=== PATIENT | male | born 1975 | race American Indian/Alaskan Native ===

== ENCOUNTER → 2021-02-21 12:08 | Outpatient (CLI) | payer BC, SELFPAY ==
[2021-02-21 12:55] LABS: COVID19 -Nasal RAPID Negative (Negative)
== END ==
PROVIDERS: Referring Provider Nurse Practitioner Family; Visit Provider Nurse Practitioner Family
DX: Z20.822 Contact with and (suspected) exposure to COVID-19 (principal); J02.9 Acute pharyngitis, unspecified
CPT/HCPCS: 87070; 87635

== ENCOUNTER 2021-03-02 22:54 | Emergency (ER) | payer BC, SELFPAY ==
[2021-03-02] VITALS (9 sets, daily range): BP systolic 132–152; BP diastolic 62–83; PULSE 97–104; RESP 18–33; TEMP 36.4; O2SAT 93–97; BMI 42.3
--- NOTE | 2021-03-02 23:00 | DI.RAD.S_ITS ---
PROCEDURE: XR CHEST 1V INDICATIONS: chest pain TECHNIQUE: One view of the chest was acquired. COMPARISON: None. FINDINGS: Surgical changes and devices: None. Lungs and pleura: Minimal left basilar atelectasis and infiltrate accentuated by low lung volumes. Mediastinum: Mediastinal contours appear normal. Heart size is normal. Mild vascular congestion noted. Bones and chest wall: No suspicious bony lesions. Overlying soft tissues appear unremarkable. IMPRESSION: Mild vascular congestion and left basilar atelectasis and or infiltrate, accentuated by low lung volumes. Dictated by: Catalino aDvid M.D. on 03/02/2021 at 23:28 Approved by: Catalino David M.D. on 03/02/2021 at 23:29
--- NOTE | 2021-03-02 23:14 | ED.CHESTPAIN ---
HPI - Chest Pain General Chief Complaint: Chest Pain Stated Complaint: chest pain Time Seen by Provider: 03/02/21 23:07 Source: patient Mode of arrival: Ambulatory Limitations: no limitations History of Present Illness HPI narrative: Patient is a 45-year-old male with no known history BMI 42 presenting with 4 days of chest discomfort. It has progressively getting worse he describes as tightness on the left side of his chest, he is noticing increasing shortness of breath with exertion which is completely abnormal for him. She does have a history of smoking. No known family history of coronary artery disease. He thought his discomfort was indigestion he has been taking Tums it is not going away. Initial EKG concerning for STEMI with ST elevation lateral and inferior he has Q-waves in inferior leads. Related Data Previous Rx's Medication Instructions Recorded amoxicillin 500 mg capsule 500 mg PO BID #20 cap 02/21/21 Allergies Allergy/AdvReac Type Severity Reaction Status Date / Time No Known Drug Allergies Allergy Verified 03/02/21 23:01 Review of Systems Review of Systems Narrative: GENERAL: Denies chills, fatigue, malaise, fever, sweats, travel HEENT: Denies sinus pain, ear pain, sore throat, difficulty swallowing, neck pain RESPIRATORY: Denies dyspnea, cough, wheezing, hemoptysis, sputum. CARDIOVASCULAR: See HPI GASTROINTESTINAL: Denies nausea, vomiting, abdominal pain, diarrhea, constipation, melena. : Denies dysuria, frequency, incontinence, hematuria, urinary retention, flank pain. MUSCULOSKELETAL: Denies weakness, joint pain, or bony pain SKIN: No rash, no erythema, no pruritus NEUROLOGIC: Denies weakness, dizziness, headache, numbness, change in speech, confusion PSYCHIATRIC: No concerning psychosocial issues. 12 point review of systems is negative except for those stated above and HPI Patient History Social History Smoking Status: Current every day smoker Smoking Status: Current every day smoker alcohol intake frequency: 0-2 drinks per day Substance Use Type: does not use Exam Initial Vital Signs Initial Vital Signs: Vital Signs Pulse Rate 101 H 03/02/21 22:59 Respiratory Rate 32 H 03/02/21 22:59 Blood Pressure 151/83 H 03/02/21 22:59 Pulse Oximetry 94 03/02/21 22:59 GENERAL: Alert 45-year-old male BMI 42 appears uncomfortable HEENT: Head atraumatic,EOMI, pupils reactive, face symmetric, [moist] mucous membranes CARDIOVASCULAR: Regular rate and rhythm without murmurs, rubs or gallops. RESPIRATORY: Breath sounds equal bilaterally, no wheezes rales or rhonchi. ABDOMEN: Soft, nontender. Normoactive bowel sounds all 4 quadrants. No guarding or rebound. EXTREMITIES: Normal range of motion, no clubbing or edema. Neurovascularly intact NEUROLOGICAL: Alert and oriented x4.Normal gait and speech. SKIN: Warm, dry, no laceration, no petechiae, no rashes or lesions. Course Orders Ordered: ED Orders 03/02/21 23:00 XR chest 1V Stat EKG-12 Lead Stat 03/02/21 23:02 BNP [NT-proBNP (BNP-Adult 18+)] Stat Complete Blood Count AUTO DIFF Stat Comprehensive Metabolic Panel Stat D Dimer Stat Lipase Stat PT [Prothrombin Time INR] Stat PTT [Partial Thromboplastin Time] Stat Troponin & CK Cardiac Panel Stat 03/02/21 23:30 COVID19 -Nasal swab/Pre-Proc Stat Discontinued Medications Aspirin (Aspirin 81 Mg Chew Tab) 324 mg PO NOW ONE Stop: 03/02/21 23:08 Last Admin: 03/02/21 23:17 Dose: 324 mg Documented by: EPIFANIO Heparin Sodium (Porcine) (Heparin 5,000 Unit/Ml Vial) 5,000 unit IV NOW ONE Stop: 03/02/21 23:08 Last Admin: 03/02/21 23:17 Dose: 5,000 unit Documented by: EPIFANIO Heparin Sodium/Dextrose (Heparin Drip) 25,000 unit in 500 mls @ 20 mls/hr IV CONT JEANNINE; Protocol Last Titration: 03/03/21 00:00 Dose: 0 units/hr, 0 mls/hr Documented by: Admin: 03/02/21 23:18 Dose: 1,000 units/hr, 20 mls/hr Documented by: EPIFANIO Nitroglycerin (Nitroglycerin) 50 mg in 250 mls @ 1.5 mls/hr IV TITRATE JEANNINE; Protocol Last Titration: 03/03/21 00:00 Dose: 0 mcg/min, 0 mls/hr Documented by: Admin: 03/02/21 23:52 Dose: 5 mcg/min, 1.5 mls/hr Documented by: JUJU Nitroglycerin (Nitroglycerin 0.4 Mg Sl Tab) 0.4 mg SL [id number] PRN PRN Reason: Chest Pain Last Admin: 03/02/21 23:28 Dose: 0.4 mg Documented by: Admin: 03/02/21 23:23 Dose: 0.4 mg Documented by: Admin: 03/02/21 23:17 Dose: 0.4 mg Documented by: EPIFANIO Vital Signs Vital signs: Vital Signs - 8 hr 03/02/21 22:59 03/02/21 23:00 03/02/21 23:01 Temperature 97.5 F L Pulse Rate 101 H 97 H 97 H Respiratory Rate 32 H 28 H 18 Blood Pressure 151/83 H 138/74 138/74 Pulse Oximetry 94 94 94 03/02/21 23:20 03/02/21 23:25 03/02/21 23:30 Temperature Pulse Rate 104 H 104 H 102 H Respiratory Rate 33 H 26 H 28 H Blood Pressure 138/64 132/62 142/68 H Pulse Oximetry 93 94 94 03/02/21 23:35 03/02/21 23:40 03/02/21 23:45 Temperature Pulse Rate 101 H 99 H 102 H Respiratory Rate 20 26 H 22 Blood Pressure 146/64 H 144/66 H 152/79 H Pulse Oximetry 96 95 97 MDM - Chest Pain Lab Data Result diagrams: 03/02/21 23:02 03/02/21 23:02 Labs: Lab Results 03/02/21 03/02/21 03/02/21 Range/Units 23:02 23:02 23:02 WBC 19.3 H (4.5-11.0) X10^3/uL RBC 5.15 (4.5-5.9) X10^6/uL Hgb 15.0 (13.5-17.5) g/dL Hct 44.0 (41-53) % MCV 85.5 (80-100) fL MCH 29.1 (26-34) PG MCHC 34.0 (30-36) % RDW 13.4 (11.6-14.8) % Plt Count 383 (150-400) X10^3/uL Neut % (Auto) 80.1 H (50-75) % Lymph % (Auto) 13.3 L (25-40) % [place] % (Auto) 3.4 (3-14) % Eos % (Auto) 2.2 (2-4) % Baso % (Auto) 1.0 (0-2) % Neut # (Auto) 95442 H (1296-3580) /uL Lymph # (Auto) 2600 (0081-0693) /uL [place] # (Auto) 700 (0-900) /uL Eos # (Auto) 400 (0-450) /uL Baso # (Auto) 200 H (0-100) /uL PT 13.2 H (10.1-12.7) SECONDS INR 1.2 (0.9-1.3) APTT 40 H (26.4-36.2) SECONDS D-Dimer (<230) ng/mL Sodium 138 (137-145) mmol/L Potassium 4.2 (3.4-5.1) mmol/L Chloride 101 (98-107) mmol/L Carbon Dioxide 26 (22-32) mmol/L BUN 11 (9-20) mg/dL Creatinine 0.93 (0.66-1.25) mg/dL Estimated GFR > 60.0 (>60) mL/min BUN/Creatinine Ratio 11.8 (6-22) Glucose 151 H (70-100) mg/dL Calcium 9.6 (8.4-10.2) mg/dL Total Bilirubin 0.5 (0.2-1.3) mg/dL AST 35 (17-59) IU/L ALT 24 (<50) IU/L Alkaline Phosphatase 128 H (38-126) U/L Total Creatine Kinase 158 (55-170) U/L CK-MB (CK-2) 9.58 H (<2.37) ng/mL CK-MB (CK-2) Rel Index 6.1 H* (1.5-5.0) % Troponin I 5.510 H* (0.01-0.034) ng/mL NT-Pro-B Natriuret Pep (<125) pg/mL Total Protein 8.2 (6.3-8.2) g/dL Albumin 4.2 (3.5-5.0) g/dL Globulin 4.0 (1.7-4.1) g/dL Albumin/Globulin Ratio 1.1 (1.0-2.8) Lipase 30 (23-300) U/L SARS-CoV-2 (PCR) (Negative) 03/02/21 03/02/21 03/02/21 Range/Units 23:02 23:02 23:30 WBC (4.5-11.0) X10^3/uL RBC (4.5-5.9) X10^6/uL Hgb (13.5-17.5) g/dL Hct (41-53) % MCV (80-100) fL MCH (26-34) PG MCHC (30-36) % RDW (11.6-14.8) % Plt Count (150-400) X10^3/uL Neut % (Auto) (50-75) % Lymph % (Auto) (25-40) % [place] % (Auto) (3-14) % Eos % (Auto) (2-4) % Baso % (Auto) (0-2) % Neut # (Auto) (7542-3340) /uL Lymph # (Auto) (1656-4302) /uL [place] # (Auto) (0-900) /uL Eos # (Auto) (0-450) /uL Baso # (Auto) (0-100) /uL PT (10.1-12.7) SECONDS INR (0.9-1.3) APTT (26.4-36.2) SECONDS D-Dimer 400 H (<230) ng/mL Sodium (137-145) mmol/L Potassium (3.4-5.1) mmol/L Chloride (98-107) mmol/L Carbon Dioxide (22-32) mmol/L BUN (9-20) mg/dL Creatinine (0.66-1.25) mg/dL Estimated GFR (>60) mL/min BUN/Creatinine Ratio (6-22) Glucose (70-100) mg/dL Calcium (8.4-10.2) mg/dL Total Bilirubin (0.2-1.3) mg/dL AST (17-59) IU/L ALT (<50) IU/L Alkaline Phosphatase (38-126) U/L Total Creatine Kinase (55-170) U/L CK-MB (CK-2) (<2.37) ng/mL CK-MB (CK-2) Rel Index (1.5-5.0) % Troponin I (0.01-0.034) ng/mL NT-Pro-B Natriuret Pep 536 H (<125) pg/mL Total Protein (6.3-8.2) g/dL Albumin (3.5-5.0) g/dL Globulin (1.7-4.1) g/dL Albumin/Globulin Ratio (1.0-2.8) Lipase (23-300) U/L SARS-CoV-2 (PCR) Negative (Negative) Imaging Data Chest x-ray: Radiologist's Impression: PROCEDURE:? XR CHEST 1V ? INDICATIONS:? chest pain ? TECHNIQUE:? One view of the chest was acquired.? ? COMPARISON:? None. ? FINDINGS:? ? Surgical changes and devices:? None.? ? Lungs and pleura:? Minimal left basilar atelectasis and infiltrate accentuated by low lung volumes. ? Mediastinum:? Mediastinal contours appear normal.? Heart size is normal.? Mild vascular congestion noted. ? Bones and chest wall:? No suspicious bony lesions.? Overlying soft tissues appear unremarkable.? ? IMPRESSION:? ? Mild vascular congestion and left basilar atelectasis and or infiltrate, accentuated by low lung volumes. ? ? Dictated by: Catalino David M.D. on 03/02/2021 at 23:28 ? ECG Data Interpretation: EKG 1. Sinus rhythm rate 100 ST elevation in lead 1 aVL Q-waves noted in inferior leads [address] elevation [address] depression EKG 2. Sinus rhythm rate 97 no acute changes MDM Narrative Medical decision making narrative: Patient's symptoms an EKG here certainly concerning for STEMI. We have called [facility] our closest STEMI Center however they have somebody in their cath lab tech and are unwilling to talk to. [facility] has been called. 23:20 Dr. Grayson, cardiology/interventionalist has been updated patient's symptoms test results and he he has evaluated EKGs. At this time he is happy to have patient transfer to the emergency department, Dr. Rodriguez, ED doctor at [facility] accepts patient Patient is given 3 nitroglycerin which has completely resolved his pain. He actually states that he is having pain with inspiration. 23:45 Trop and Dimer are still pending Troponin comes back elevated at 5.51. Cardiology and ED attending at receiving [facility] have been notified Critical Care Time Critical Care Time Critical Care Time: Yes Total Critical Care Time: 30 Attestation: The high probability of a clinically significant, sudden or life threatening deterioration of the [cardiovascular] system(s) required my full and direct attention, intervention and personal management. The aggregate critical care time was 30 minutes. This time is in addition to time spent performing reported procedures but includes the following: [x] Data Review and interpretation [x] Patient assessment and monitoring of vital signs [x] Documentation [x] Medication orders and management Discharge Plan Departure Patient Disposition: [facility] Clinical Impression: ST elevation myocardial infarction (STEMI) Prescriptions: No Action amoxicillin 500 mg capsule 500 mg PO BID Qty: 20 0RF Rx Instructions: take for the entire 10 days even if symptoms seem better Referrals: Miscellaneous,Doctor, MD [Primary Care Provider] -
[2021-03-02] MEDS: NITROGLYCERIN 0.4 MG SL TAB SL ×3 (23:17→23:28)
[2021-03-02] MEDS: ASPIRIN 81 MG CHEW TAB 324 MG PO (23:17)
[2021-03-02] MEDS: HEPARIN 5,000 UNIT/ML VIAL 5000 UNIT IV (23:17)
[2021-03-02] MEDS: HEPARIN DRIP 25,000 UNIT/500 ML IV.SOLN 20 UNIT IV (23:18)
[2021-03-02 23:23] LABS: Add Manual Diff / Slide Review NO; Basophils Absolute Auto 200 /uL (0-100); Eosinophils Absolute Auto 400 /uL (0-450); Eosinophils Percent Auto 2.2 % (2-4); INR 1.2 (0.9-1.3); Lymphocytes Absolute Auto 2600 /uL (1100-4500); Lymphocytes Percent Auto 13.3 % (25-40); Mean Corpuscular Hemoglobin 29.1 PG (26-34); Mean Corpuscular Volume 85.5 fL (80-100); Monocytes Absolute Auto 700 /uL (0-900); Monocytes Percent Auto 3.4 % (3-14); Neutrophils Absolute Auto 15500 /uL (1500-7000); Neutrophils Percent Auto 80.1 % (50-75); Platelet Count 383 X10^3/uL (150-400); Prothrombin Time 13.2 SECONDS (10.1-12.7); Red Blood Cell Count 5.15 X10^6/uL (4.5-5.9); Red Cell Distribution Width 13.4 % (11.6-14.8); White Blood Cell Count 19.3 X10^3/uL (4.5-11.0)
[2021-03-02 23:25] LABS: PTT Partial Thromboplastin Tim 40 SECONDS (26.4-36.2)
[2021-03-02 23:35] LABS: Alanine Aminotransferase 24 IU/L (<50); Albumin 4.2 g/dL (3.5-5.0); Albumin Globulin Ratio 1.1 (1.0-2.8); Alkaline Phosphatase 128 U/L (38-126); Aspartate Aminotransferase 35 IU/L (17-59); BUN Creatinine Ratio 11.8 (6-22); Bilirubin Total 0.5 mg/dL (0.2-1.3); Blood Urea Nitrogen 11 mg/dL (9-20); Calcium 9.6 mg/dL (8.4-10.2); Carbon Dioxide 26 mmol/L (22-32); Chloride 101 mmol/L (98-107); Creatine Kinase 158 U/L (55-170); Estimated Glomerular Filt Rate > 60.0 mL/min (>60); Glucose 151 mg/dL (70-100); HEMOLYSIS < 15 (0-50); Lipase 30 U/L (23-300); Potassium 4.2 mmol/L (3.4-5.1); Sodium 138 mmol/L (137-145); Total Protein 8.2 g/dL (6.3-8.2)
[2021-03-02] MEDS: NITROGLYCERIN 50 MG/250 ML INFUS..BTL IV (23:52)
[2021-03-02 23:55] LABS: COVID19 -Nasal RAPID Negative (Negative)
[2021-03-02 23:57] LABS: D Dimer 400 ng/mL (<230)
[2021-03-03 00:10] LABS: NT-proBNP (BNP-Adult 18+) 536 pg/mL (<125)
[2021-03-03 00:13] LABS: Creatine Kinase MB 9.58 ng/mL (<2.37)
[2021-03-03 00:17] LABS: CKMB % Relative Index 6.1 % (1.5-5.0)
== END 2021-03-03 00:07 | disposition short-term general hospital (02) ==
PROVIDERS: Emergency Provider Emergency Medicine
DX: I21.3 ST elevation (STEMI) myocardial infarction of unspecified site (principal); Z20.822 Contact with and (suspected) exposure to COVID-19
CPT/HCPCS: 36415; 71045; 80053; 82550; 82553; 83690; 83880; 84484; 85025; 85379; 85610; 85730; 87635; 93005; 96365; 96375; 96376; 99284; 99291; C9803; J1644

== ENCOUNTER → 2022-02-13 09:13 | Outpatient (CLI) | payer BC, SELFPAY ==
[2022-02-13 10:31] LABS: COVID19 -Nasal RAPID Negative (Negative)
== END ==
PROVIDERS: PCP Internal Medicine; Visit Provider Surgery
DX: Z20.822 Contact with and (suspected) exposure to COVID-19 (principal); Z01.812 Encounter for preprocedural laboratory examination
CPT/HCPCS: 87635; C9803

== ENCOUNTER 2022-02-14 08:52 | Day surgery (SDC) | payer BC, SELFPAY ==
[2022-02-12 13:21] VITALS: BMI 39.4
[2022-02-14] VITALS (10 sets, daily range): BP systolic 119–167; BP diastolic 73–104; PULSE 65–80; RESP 12–20; TEMP 36.4–37.2; O2SAT 95–98; BMI 39.4
[2022-02-14] MEDS: LACTATED RINGERS 1,000 ML 120 ML IV (09:22)
--- NOTE | 2022-02-14 09:36 | PM.HP.1 ---
History of Present Illness History of Present Illness Date Patient Seen: 02/14/22 Time Patient Seen: 09:36 Chief complaint: Open Supra Umbilical Hernia Repair w/Mesh Narrative: 46M with a symptomatic supra umbilical hernia here for open elective repair. No interval changes in health. Patient History Medical History HTN (hypertension) Myopericarditis (~02/2021) Obesity (BMI 30-39.9) Trimalleolar fracture Surgical History Hx of cardiac cath (~03/03/21) Family & Social History Social History: household members significant other lives independently Yes Tobacco & Substance use: Smoking Status Current every day smoker alcohol intake current alcohol intake frequency 0-2 drinks per day Substance Use Type does not use Meds Home Medications and Allergies Home Medications Medication Instructions Recorded Confirmed Type acyclovir PO 11/16/21 11/16/21 History calcium carbonate [Tums] PO PRN Hypocalcemia 11/16/21 11/16/21 History ibuprofen 400 mg tablet (IBU) 400 mg PO Q8H PRN Pain (Scale 11/16/21 02/14/22 History Score 4-6) omega-3 fatty acids [Fish Oil] PO 11/16/21 11/16/21 History Allergies Allergy/AdvReac Type Severity Reaction Status Date / Time No Known Drug Allergies Allergy Verified 02/14/22 09:18 Exam Vital Signs (past 8 hours): - 02/14/22 09:08 Temperature 97.6 F Pulse Rate 65 Respiratory Rate 20 Blood Pressure 119/73 Pulse Oximetry 96 Oxygen Delivery Method Room Air Oxygen Delivery Method Room Air Narrative Exam Narrative: Gen-Adult man alert and oriented Abdomen -Soft supra umbilical hernia marked with my initials. Assessment & Plan Assessment and plan (1) Ventral hernia: Qualifiers: Obstruction and gangrene presence: without obstruction or gangrene Qualified Code(s): K43.9 - Ventral hernia without obstruction or gangrene Status: Acute Assessment & Plan narrative: 46M with supra umbilical ventral hernia here for elective open repair. Operative risks again discussed including bleeding, infection ,reoccurence, damage to surrounding structures. Questions have been answered and he is in agreement with this plan. Time Spent With Patient Critical Care time: I spent a total of [] minutes of critical care time on this patient's care today; this time is exclusive of procedural time.
[2022-02-14] MEDS: CEFAZOLIN 2 GM/100 ML PREMIX 100 ML IV (10:10)
[2022-02-14] MEDS: BUPIVACAINE 0.25% (PF) VIAL 30 ML INJ (10:27)
--- NOTE | 2022-02-14 10:39 | SUR.OPER ---
PATIENT C/O LEFT HIP PAIN.. STARTED 2 DAYS AGO, UNKNOWN CAUSE. PILLOW UNDER KNEES
--- NOTE | 2022-02-14 11:48 | PM.OP.1 ---
Operative Date/Time/Diagnoses Date of procedure: 02/14/22 Time of procedure: 11:48 Pre-op diagnosis: Umbilical hernia Post-op diagnosis: same Procedure & Clinicians Procedure: open umbilical hernia repair with mesh Same procedure as scheduled: Yes Indications: symptomatic non reducible umbilical hernia Surgeon: Brien Davies Click Yes if Unassisted: Yes Anesthesia Type: General Operative Notes Findings: incarcerated viable omentum Specimen(s): none sent Estimated Blood Loss (mL): 50 Procedure in detail: Patient was brought to the operating room placed supine on the table.? Bilateral lower extremity compression devices were applied.? General anesthesia was induced and they were intubated with an endotracheal tube.? They received 2 g of Ancef prior to skin incision.? They were prepped and draped in sterile fashion.? A time-out was performed.? A curvilinear incision was made inferior to the umbilicus.? The subcutaneous tissues were divided.? The umbilical hernia was identified and the hernia sac was dissected off the umbilical skin and circumferentially off of the fascia defect.? The hernia sac was sharply opened and contained incarcerated but viable omentum.? The omentum could not adequately be reduced back into the abdomen and therefore it was ligated and resected..? Using blunt dissection I carefully carefully freed the hernia sac from beneath the fascia defect in order to accomodate the mesh.? The? fascia defect was 4 cm in maximal diameter.? A Bard Ventralex ST hernia patch 8 x 12 cm was inserted beneath the fascia defect in a sublay position. The mesh was anchored in multiple locations using Ethibond suture to the fascia and the fascial defect was closed over the mesh.? The umbilical skin was tacked to the subcutaneous tissues and then the remainder of the subcutaneous tissues were reapproximated using 3 0 Vicry,l skin closed with 4 0 Monocryl followed by the application of Dermabond and Steri-Strips.? Sponge instrument count at the end of the operation was correct.? Patient tolerated procedure well was extubated and transferred to postoperative care unit in stable condition. Complications: none Post-operative Condition: stable Disposition: same day surgery
[2022-02-14] MEDS: HYDROMORPHONE 2 MG INJ IV ×2 (11:59→12:08)
[2022-02-14] MEDS: OXYCODONE/ACETAMINOPHEN 5/325 TABLET 1 TAB PO ×2 (12:16→13:07)
== END 2022-02-14 13:37 | disposition home or self-care (01) ==
PROVIDERS: PCP Internal Medicine; Referring Provider Surgery; Visit Provider Surgery
PROC: (CPT 49587; principal; 2022-02-14 10:15)
DX: K42.9 Umbilical hernia without obstruction or gangrene (principal); I10 Essential (primary) hypertension
CPT/HCPCS: 49587; J0330; J0690; J1100; J1170; J2250; J2405; J2704; J3010

== ENCOUNTER 2023-04-26 11:36 | Day surgery (SDC) | payer BC, SELFPAY ==
--- NOTE | 2023-04-26 | PATH_ITS ---
[facility] Accession Number: [id number] No. of containers..01 Tissue . 01 Material submitted: . colon - DESCENDING POLYP . 01 Diagnosis: Descending Colon Polyp, Biopsy: Tubular adenoma. MRV 04/29/2023 1334 Local . 01 Electronically signed: . Alexandra Whitney MD, Pathologist NPI- [id number] . 01 Gross description: . DESCENDING POLYP: Received in formalin is 2 fragment(s) of mirza, soft tissue measuring 0.2 x 0.2 x 0.1 cm to 0.2 x 0.1 x 0.1 cm submitted entirely in 1 cassette(s) /AAY 04/27/2023 0630 Local . 01 Pathologist provided ICD-10: D12.4 . 01 CPT . 210091 Specimen Comment: A courtesy copy of this report has been sent to [phone] Performed at: 01 [facility] [address] [place] [address], [place], [place] [id number] MD Bart Cristobal MD Phone: [phone]
[2023-04-26 12:35] VITALS: BP 126/82; PULSE 62; RESP 20; TEMP 36.2; O2SAT 96
[2023-04-26] MEDS: LACTATED RINGERS 1,000 ML 42 ML IV (12:39)
--- NOTE | 2023-04-26 13:10 | PM.HP.1 ---
History of Present Illness History of Present Illness Date Patient Seen: 04/26/23 Chief complaint: Colonoscopy Narrative: The patient presents for colorectal screening. They have never had any previous examination for such. No personal or family history of colon cancer. On further history denies any recent gastrointestinal symptoms. No nausea, vomiting, abdominal pain, loss of appetite, unexplained weight loss, change in bowel habits, or blood per rectum. PFSH Medical History Myopericarditis (~02/2021) Obesity (BMI 30-39.9) HTN (hypertension) Trimalleolar fracture Surgical History Hx of cardiac cath (~03/03/21) Social History household members: significant other lives independently: Yes Smoking Status: Current some day smoker alcohol intake: current Meds Home Medications and Allergies Home Medications Medication Instructions Recorded Confirmed Type acyclovir PO 11/16/21 03/08/22 History calcium carbonate [Tums] PO PRN Hypocalcemia 11/16/21 03/08/22 History acetaminophen 325 mg capsule 650 mg (2 x 325 mg) PO QID PRN 02/14/22 04/26/23 Rx (Tylenol) pain #60 caps celecoxib 200 mg capsule (Celebrex) 200 mg PO BID #30 caps 02/15/22 04/26/23 Rx Allergies Allergy/AdvReac Type Severity Reaction Status Date / Time No Known Drug Allergies Allergy Verified 04/26/23 12:02 Exam Vital Signs (past 8 hours): - 04/26/23 12:35 Temperature 97.2 F L Pulse Rate 62 Respiratory Rate 20 Blood Pressure 126/82 Pulse Oximetry 96 Oxygen Delivery Method Room Air Oxygen Delivery Method Room Air Narrative Exam Narrative: General adult man alert oriented no acute distress Chest nonlabored respiration Extremities warm well perfused Assessment & Plan Assessment & Plan narrative: Insert endoscopy assessment plan
[2023-04-26 13:46] VITALS: BP 124/80; PULSE 54; RESP 18; TEMP 36.2; O2SAT 93
--- NOTE | 2023-04-26 13:48 | P.OP.COLON_ITS ---
Operative Date/Time/Diagnoses Date of procedure: 04/26/23 Time of procedure: 13:48 Pre-op diagnosis: Colorectal screening Procedure & Clinicians Study performed: Colonoscopy and polypectomy Same procedure as scheduled: Yes Indications: Colorectal screening Surgeon: Brien Davies Procedure Notes Procedure in detail: The history and physical was performed/updated and the patient is ASA class is 3. The procedure was discussed in detail with the patient. Potential risks complications including infection, bleeding, missed diagnosis, perforation, need for surgery, and were explained. Their questions were answered and informed consent was obtained. Patient was brought to the procedure room and placed standard monitoring equipment. The patient's vital signs were monitored continuously throughout the entire procedure. Prior to starting time-out was performed. The patient was placed in the left lateral recumbent position. Procedural sedation was administered by anesthesia. Examination began with a thorough inspection of the perianal area there was no evidence of fissures, fistulae, external hemorrhoids or cutaneous malignancy. The colonoscopy scope was then placed into the anal canal and was advanced to the cecum, which was identified by the ileocecal valve, the appendiceal orifice and the confluence of the taenia. The scope was then slowly withdrawn examining colon thoroughly in all directions, irrigating it of any residual stool. The scope was retroflexed within the rectum The patient tolerated the procedure well. They will be discharged once criteria are met. The prep was of good/excellent quality. The withdrawl time was 6 min utes. FINDINGS * Descending colon 3 mm sessile polyp removed in pieces using biopsy forceps * Sigmoid colon moderate diverticulosis. Specimen(s): other (Descending colon polyp) Impression: Colonic polyp x1 Post-procedure Plan for aftercare: Follow-up is dependent on pathology findings likely 5 years Disposition: same day surgery
[2023-04-26 13:51] VITALS: BP 118/79; PULSE 54; RESP 12; O2SAT 93
[2023-04-26 13:56] VITALS: BP 128/87; PULSE 54; RESP 16; O2SAT 95
[2023-04-26 14:01] VITALS: BP 135/85; PULSE 55; RESP 14; O2SAT 98
[2023-04-26 14:06] VITALS: BP 128/90; PULSE 64; RESP 18; TEMP 36.2; O2SAT 96
== END 2023-04-26 14:22 | disposition home or self-care (01) ==
PROVIDERS: Referring Provider Surgery; Visit Provider Surgery
PROC: 0DJD8ZZ Inspection of Lower Intestinal Tract, Via Natural or Artificial Opening Endoscopic (ICD-10-PCS; CPT 45378; principal; 2023-04-26 13:15)
DX: Z12.11 Encounter for screening for malignant neoplasm of colon (principal); K57.30 Diverticulosis of large intestine without perforation or abscess without bleeding; D12.4 Benign neoplasm of descending colon; I10 Essential (primary) hypertension; E66.01 Morbid (severe) obesity due to excess calories; Z68.42 Body mass index [BMI] 45.0-49.9, adult
CPT/HCPCS: 45380; 93005; 93010; J2250; J2704